=== PATIENT | female | born 1995 | race African-American/Black ===

== ENCOUNTER 2017-03-26 15:11 | Emergency (ER) | payer OTHER ==
[2017-03-26 15:26] VITALS: BP 121/76; PULSE 63; TEMP 98.9; BMI 26.6
--- NOTE | 2017-03-26 16:47 | PDOC ---
History of Present Illness - General History Source: Patient Exam Limitations: No Limitations - History of Present Illness Initial Comments: 03/26/17 17:03 The patient is a 21 year old female, with a significant past medical history of chronic back pain who presents to the emergency department with complaint of back pain for 1 month. Patient states that she has been having chronic back pain for 1 month that is managed by a pain management doctor Dr. Lamas. Patient states that she presents today because she ran out of her percocet prescription. She notes that she saw Dr. Lamas on the 03/07 and her next appointment is on 03/21 and she needs something to get by. Patient states that she is in pain, but is ambulating around the ED with a steady gait, in no distress. She denies chest pain and shortness of breath. She denies fever, chills, headache and dizziness. She denies nausea, vomit, diarrhea and constipation. She denies dysuria, frequency, urgency and hematuria. Denies urinary retention or incontinence. She denies any visual changes, lightheadedness or slurred speech. Denies LE weakness or sensory deficits. <Bessy Mcdowell - Last Filed: 03/26/17 17:03> <Dawit Briceño - Last Filed: 03/26/17 23:06> - General Stated Complaint: NAUSEA Time Seen by Provider: 03/26/17 15:19 Past History <Bessy Mcdowell - Last Filed: 03/26/17 17:03> - Past Medical History Asthma: No Cancer: No Cardiac Disorders: No Diabetes: No Disorders: Yes (UTIs) HTN: No Seizures: No Thyroid Disease: No - Reproductive History (#): 4 Para: 2 - Immunization History Immunization Up to Date: No - Psycho/Social/Smoking Cessation Hx Anxiety: No Suicidal Ideation: No Smoking History: Current every day smoker Have you smoked in the past 12 months: No Number of Cigarettes Smoked Daily: 5 If you are a former smoker, when did you quit?: 08/25 Information on smoking cessation initiated: Yes 'Breaking Loose' booklet given: 04/28/16 Hx Alcohol Use: No Drug/Substance Use Hx: No Substance Use Type: None Hx Substance Use Treatment: No <Dawit Briceño - Last Filed: 03/26/17 23:06> - Past Medical History Allergies/Adverse Reactions: Allergies Allergy/AdvReac Type Severity Reaction Status Date / Time No Known Allergies Allergy Verified 04/28/16 10:33 Home Medications: Ambulatory Orders Dicyclomine HCl [Bentyl] 10 mg PO BID PRN #30 capsule 04/28/16 Ranitidine HCl [Zantac] 150 mg PO DAILY #30 tablet 04/28/16 Review of Systems - Review of Systems Able to Perform ROS?: Yes Comments:: 03/26/17 17:03 GENERAL/CONSTITUTIONAL: No fever or chills. No weakness. HEAD, EYES, EARS, NOSE AND THROAT: No change in vision. No ear pain or discharge. No sore throat. GASTROINTESTINAL: No nausea, vomiting, diarrhea or constipation. GENITOURINARY: No dysuria, frequency, or change in urination. CARDIOVASCULAR: No chest pain or shortness of breath. RESPIRATORY: No cough, wheezing, or hemoptysis. MUSCULOSKELETAL:+chronic back pain. No joint or muscle swelling or pain. No neck pain. SKIN: No rash NEUROLOGIC: No headache, vertigo, loss of consciousness, or change in strength/ sensation. ENDOCRINE: No increased thirst. No abnormal weight change. HEMATOLOGIC/LYMPHATIC: No anemia, easy bleeding, or history of blood clots. ALLERGIC/IMMUNOLOGIC: No hives or skin allergy. <Bessy Mcdowell - Last Filed: 03/26/17 17:03> *Physical Exam - Vital Signs Last Vital Signs Temp Pulse Resp BP Pulse Ox 98.9 F 63 17 121/76 100 03/26/17 15:18 03/26/17 15:18 03/26/17 15:18 03/26/17 15:18 03/26/17 15:18 - Physical Exam Comments: 03/26/17 17:03 GENERAL: Awake, alert, and fully oriented, in no acute distress HEAD: No signs of trauma EYES: PERRLA, EOMI, sclera anicteric, conjunctiva clear ENT: Auricles normal inspection, hearing grossly normal, nares patent, oropharynx clear without exudates. Moist mucosa NECK: Normal ROM, supple, no lymphadenopathy, JVD, or masses LUNGS: Breath sounds equal, clear to auscultation bilaterally. No wheezes, and no crackles HEART: Regular rate and rhythm, normal S1 and S2, no murmurs, rubs or gallops ABDOMEN: Soft, nontender, normoactive bowel sounds. No guarding, no rebound. No masses EXTREMITIES: Normal range of motion, no edema. No clubbing or cyanosis. No cords, erythema, or tenderness NEUROLOGICAL: Cranial nerves II through XII grossly intact. Normal speech, normal gait SKIN: Warm, Dry, normal turgor, no rashes or lesions noted. <Bessy Mcdowell - Last Filed: 03/26/17 17:03> - Vital Signs Last Vital Signs Temp Pulse Resp BP Pulse Ox 98.9 F 63 17 121/76 100 03/26/17 15:18 03/26/17 15:18 03/26/17 15:18 03/26/17 15:18 03/26/17 15:18 <Dawit Briceño - Last Filed: 03/26/17 23:06> Medical Decision Making - Medical Decision Making 03/26/17 17:00 21yo F hx chronic LBP followed by pain management on daily percocet for pain control presents for back pain x1 month, requesting a percocet refill. Vitals and exam unremarkable, with no back pain red flags on exam. Denies urine retention and saddle anesthesia, exam with no midline ttp, 5/5 strength in LE, normal sensation in all extremities, normal reflexes. Pt is ambulating in the ED with a steady gait, and does not appear uncomfortable or in any distress. I offered the patient her home dose of percocet here in the ED for pain control but that since she is followed by pain management, I would not be able to refill her percocet prescription until she called her pain management physician first. I offered to speak with her pain management doctor but she was unable to remember the rest of his name, referred to him only as "Dr. Lamas." I asked for her pharmacy information but could not identify her pharmacy. Pt then reported that she would call Dr. Lamas as soon as she got home, and abruptly requested DC as she had to fruit picker machine operator her son. Pt reports she has a ride to pick her up from the ED to go fruit picker machine operator her son. I advised the patient to return to the emergency department immediately if she had any new, worsening, or concerning symptoms. <Dawit Briceño - Last Filed: 03/26/17 23:06> *DC/Admit/Observation/Transfer - Attestations Scribe Attestion: 03/26/17 16:56 Documentation prepared by LOREN Rivero, acting as center medical specialist for Dawit Briceño MD. <Bessy Mcdowell - Last Filed: 03/26/17 17:03> - Discharge Dispostion Admit: No - Attestations Physician Attestion: 03/26/17 19:15 I, Dr. Dawit Briceño MD, attest that this document has been prepared under my direction and personally reviewed by me in its entirety. I further attest, that it accurately reflects all work, treatment, procedures and medical decision -making performed by me. <Dawit Briceño - Last Filed: 03/26/17 23:06> Diagnosis at time of Disposition: Low back pain - Discharge Dispostion Disposition: HOME Condition at time of disposition: Good - Referrals Referrals: Deon Rose MD [Primary Care Provider] - - Patient Instructions Printed Discharge Instructions: Managing Chronic Low Back Pain Additional Instructions: Please call your pain management doctor today for a follow up appointment for your pain within 1-3 days. Return to the emergency department for any new, worsening, or concerning symptoms.
== END 2017-03-26 17:09 | disposition home or self-care (01) ==
LOC: JER 15:11
DX: M54.5 Low back pain (principal)
CPT/HCPCS: 99282-25

== ENCOUNTER 2018-05-23 10:36 | Inpatient (IN) | payer OTHER ==
[2018-05-23 11:26] VITALS: BMI 31.4
--- NOTE | 2018-05-23 13:43 | HP ---
COWS - Scale Resting Pulse: 0= [place] 80 or Below Sweatin= Chills/Flushing Restless Observation: 1= Difficult to Sit Still Pupil Size: 1= Pupils >than Normal Bone or Joint Aches: 2= Severe Diffuse Aches Runny Nose/ Eye Tearin= Runny Nose/Eyes GI Upset > 30mins: 2= Nausea/Diarrhea Tremor Observation: 2= Slight Tremor Visible Yawning Observation: 2= >3x During Session Anxiety or Irritability: 2=Irritable/Anxious Goose Flesh Skin: 0=Smooth Skin COWS Score: 15 CIWA Score - Admission Criteria [facility] Guidelines: Admission for Medically Managed Detox: Requires at least one of the followin. CIWA greater than 12 2. Seizures within the past 24 hours 3. Delirium tremens within the past 24 hours 4. Hallucinations within the past 24 hours 5. Acute intervention needed for co occurring medical disorder 6. Acute intervention needed for co occurring psychiatric disorder 7. Severe withdrawal that cannot be handled at a lower level of care (continued vomiting, continued diarrhea, abnormal vital signs) requiring intravenous medication and/or fluids 8. Admission ROS [facility] Chief Complaint: i need help to stop using percocet Allergies/Adverse Reactions: Allergies Allergy/AdvReac Type Severity Reaction Status Date / Time No Known Allergies Allergy Verified 05/23/18 12:21 History of Present Illness: this 22 years old female with percocet dependence,seeking detox,withdrawal symptom,never been in detox before nicotine dependence anxiety ,depression last medication insomnia Exam Limitations: No Limitations - Ebola screening Have you traveled outside of the country in the last 21 days: No Have you had contact with anyone from an Ebola affected area: No Have you been sick,other than usual withdrawal symptoms: No Do you have a fever: No - Review of Systems Constitutional: Chills, Loss of Appetite, Malaise, Night Sweats, Changes in sleep, Weakness EENT: reports: Tearing, Nose Congestion Respiratory: reports: No Symptoms reported Cardiac: reports: No Symptoms Reported GI: reports: Diarrhea, Nausea, Poor Fluid Intake, Vomiting : reports: No Symptoms Reported Musculoskeletal: reports: Back Pain, Joint Pain, Muscle Pain, Joint Stiffness Integumentary: reports: Dryness Neuro: reports: Headache, Tremors Endocrine: reports: No Symptoms Reported Hematology: reports: No Symptoms Reported Psychiatric: reports: No Sypmtoms Reported, Judgement Intact, Mood/Affect Appropiate, Orientated x3, Anxious, Depressed (insomnia) Patient History - Patient Medical History Hx Anemia: No Hx Asthma: No Hx Cancer: No Hx Cardiac Disorders: No Hx Congestive Heart Failure: No Hx Hypertension: No Hx Hypercholesterolemia: No Hx Pacemaker: No HX Cerebrovascular Accident: No Hx Seizures: No Hx Dementia: No Hx Diabetes: No Hx Gastrointestinal Disorders: No Hx Liver Disease: No Hx Genitourinary Disorders: Yes (UTIs) Hx Sexually Transmitted Disorders: No Hx Renal Disease (ESRD): No Hx Thyroid Disease: No Hx Human Immunodeficiency Virus (HIV): No (last 03/29 negative) Hx Hepatitis C: No Hx Depression: Yes (no med now last 3 months ago) Hx Suicide Attempt: No Hx Bipolar Disorder: No Hx Schizophrenia: No Other Medical History: anxiety,insomnia,no suicidal,no homicidal - Patient Surgical History Past Surgical History: No - PPD History Previous Implant?: Yes Documented Results: Negative w/o proof Implanted On Prior R Admission?: No PPD to be Administered?: Yes - Reproductive History Patient is a Female of Child Bearing Age (11 -55 yrs old): Yes Last Menstrual Period: 04/18/18 Patient : No - Smoking Cessation Smoking history: Current every day smoker Have you smoked in the past 12 months: No Aproximately how many cigarettes per day: 20 Hx Chewing Tobacco Use: No Initiated information on smoking cessation: Yes 'Breaking Loose' booklet given: 05/23/18 - Substance & Tx. History Hx Alcohol Use: No Hx Substance Use: Yes Substance Use Type: Opiates Hx Substance Use Treatment: No - Substances Abused PERCOCET Route: Oral Frequency: Daily Amount used: 6-7 (10MG) PILLS Age of first use: 20 Date of Last Use: 05/22/18 Family Disease History - Family Disease History Family Disease History: Other: Father (no contact), Mother Admission Physical Exam S - Vital Signs Vital Signs: Vital Signs - 24 hr 05/23/18 11:23 Temperature 99.5 F Pulse Rate 61 Respiratory 18 Rate Blood Pressure 127/75 - Physical General Appearance: Yes: Moderate Distress, Tremorous, Irritable, Anxious HEENTM: Yes: Hearing grossly Normal, YANELY, Pharynx Normal, Nasal Congestion ( nose ring), Other Respiratory: Yes: Lungs Clear, Normal Breath Sounds, No Respiratory Distress Neck: Yes: Within Normal Limits, Supple, Trachea in good position Breast: Yes: Breast Exam Deferred Cardiology: Yes: Within Normal Limits, Regular Rhythm, Regular Rate, S1, S2 Abdominal: Yes: Within Normal Limits, Normal Bowel Sounds, Non Tender, Flat, Soft Genitourinary: Yes: Within Normal Limits Back: Yes: Muscle Spasm Musculoskeletal: Yes: Back pain, Muscle Pain Extremities: Yes: Tremors Neurological: Yes: customer acquisition manager II-XII NML intact, Fully Oriented, Alert, Motor Strength 5/5 Integumentary: Yes: Dry Lymphatic: Yes: Within Normal Limits - Diagnostic (1) Opioid dependence with withdrawal Current Visit: Yes Status: Acute (2) Insomnia secondary to depression with anxiety Current Visit: Yes Status: Acute (3) Nicotine dependence Current Visit: Yes Status: Acute Cleared for Admission [facility] - Detox or Rehab [facility] Level of Care: Medically Managed Detox Regimen/Protocol: Methadone [facility] Breath Alcohol Content Breath Alcohol Content: 0 Urine Pregancy Test - Result Urine Test Results: Negative- NO Line Present Urine Drug Screen - Results Drug Screen Negative: No Urine Drug Screen Results: OPI-Opiates, BAR-Barbiturates, BZO-Benzodiazepines, OXY-Oxycodone
[2018-05-23] MEDS ORDERED: LOPERAMIDE HCL 2 MG CAPSULE PO PRN (13:56)
[2018-05-23] MEDS ORDERED: NICOTINE POLACRILEX 2 MG GUM BUC PRN (13:56)
[2018-05-23] MEDS ORDERED: MENTHOL/PHENOL 1 EACH UD MM PRN (13:56)
[2018-05-23] MEDS ORDERED: IBUPROFEN 400 MG TABLET (FP) PO PRN (13:56)
[2018-05-23] MEDS ORDERED: ACETAMINOPHEN 325 MG TABLET (FP) PO PRN (13:56)
[2018-05-23] MEDS ORDERED: P-EPHED 60MG/TRIPROLIDI 2.5MG TABLET PO PRN (13:56)
[2018-05-23] MEDS ORDERED: MAGNESIUM HYDROX 2400MG/30ML ORAL SUSPENSION 30 ML CUP PO PRN (13:56)
[2018-05-23] MEDS ORDERED: MAGNESIUM CITRATE 300 ML BOTTLE PO PRN (13:56)
[2018-05-23] MEDS ORDERED: guaiFENesin/D-METHORPHAN HB 10 ML UNIT-DOSE CUPS PO PRN (13:56)
[2018-05-23] MEDS ORDERED: METHADONE HCL 10 MG TABLET (FOR DETOX USE ONLY) PO ONE ×2 (14:30→23:00)
--- NOTE | 2018-05-23 14:35 | CONSULT ---
[facility] Psychiatric Consult - Data Date of interview: 05/23/18 Admission source: [facility] Identifying data: This is a 22 years old female, single, mother of two, living with family, unemployed, with psychiatric hospitalization history, with percocet and nicotine dependence,seeking detox reporting withdrawal symptoms , never been in detox before. Patient denies suicidal, homicidal history. Substance Abuse History: Smoking history: Current every day smoker. Have you smoked in the past 12 months: No. Aproximately how many cigarettes per day: 20. Hx Chewing Tobacco Use: No. Initiated information on smoking cessation: Yes. 'Breaking Loose' booklet given: 05/23/18. - Substance & Tx. History. Hx Alcohol Use: No. Hx Substance Use: Yes. Substance Use Type: Opiates. Hx Substance Use Treatment: No. - Substances Abused. PERCOCET. Route: Oral. Frequency: Daily. Amount used: 6-7 (10MG) PILLS. Age of first use: 20. Date of Last Use: 05/22/18 Medical History: Denies any significant medical issues Psychiatric History: Patient reportsm history of anxiety, agitation. reports unclear psychiatric admission at childhood, reportsm taking prior to admission: Seroquel 100mg po qhs. Buspar 30mg p[o bid Physical/Sexual Abuse/Trauma History: Denies, unclear Additional Comment: Seroquel 100mg po qhs. Buspar 30mg p[o bid Mental Status Exam - Mental Status Exam Alert and Oriented to: Place, Person Cognitive Function: Fair Patient Appearance: Well Groomed Mood: Suspicious, Anxious, Irritable Affect: Constricted, Labile Patient Behavior: Guarded, Impulsive, Talkative Speech Pattern: Appropriate Voice Loudness: Normal Thought Process: Circumstantial, Goal Oriented Thought Disorder: Being Controlled Hallucinations: Denies Suicidal Ideation: Denies Homicidal Ideation: Denies Insight/Judgement: Fair Sleep: Difficulty falling asleep Appetite: Weight gain Muscle strength/Tone: Normal Gait/Station: Normal Additional Comments: Seroquel 100mg po qhs. Buspar 30mg p[o bid Psychiatric Findings - Problem List ([place] 1, 2,3) (1) Insomnia secondary to depression with anxiety Current Visit: Yes Status: Acute (2) Nicotine dependence Current Visit: Yes Status: Acute (3) Opioid dependence with withdrawal Current Visit: Yes Status: Acute - Initial Treatment Plan Initial Treatment Plan: Observation. Detox Unit Care Protocol. Busoar 30mg po bid. Seroquel 100mg po qhs
[2018-05-23] MEDS: diazePAM 5 MG TABLET PO PRN ×2 (14:47→18:50)
[2018-05-23] MEDS: NICOTINE 21 MG/24 HOURS TOPICAL PATCH TD SCH (14:59)
[2018-05-23 17:23] LABS: URINE APPEARANCE CLEAR; URINE BILIRUBIN NEGATIVE (<2.0 mg/dL); URINE COLOR YELLOW; URINE GLUCOSE (UA) NEGATIVE (NEGATIVE); URINE KETONE TRACE (NEGATIVE); URINE LEUK ESTERASE NEGATIVE (NEGATIVE); URINE NITRITE NEGATIVE (NEGATIVE); URINE PROTEIN NEGATIVE (NEGATIVE)
[2018-05-23] MEDS: MAG HYDROX/AL HYDROX/SIMETH 30 ML UNIT-DOSE CUP PO PRN (17:26)
[2018-05-23] MEDS: hydrOXYzine PAMOATE 50 MG CAPSULE (FP) PO PRN (17:34)
[2018-05-23] MEDS: THIAMINE HCL 100 MG TABLET (FP) PO SCH (22:25)
[2018-05-23] MEDS: QUEtiapine FUMARATE 100 MG TABLET (FP) PO SCH (22:25)
[2018-05-24] MEDS: diazePAM 5 MG TABLET PO PRN ×4 (06:51→22:18)
[2018-05-24 09:46] LABS: ALBUMIN 4.2 g/dl (3.4-5.0); ALK PHOS 61 U/L (45-117); ANION GAP 6 MMOL/L (8-16); BILIRUBIN,TOTAL 0.5 mg/dL (0.2-1); BLOOD UREA NITROGEN 13 mg/dL (7-18); CALCIUM 9.2 mg/dL (8.5-10.1); CHLORIDE 105 mmol/L (98-107); CO2 27 mmol/L (21-32); CREATININE 0.8 mg/dL (0.55-1.3); GLUCOSE,RANDOM 88 mg/dL (74-106); POTASSIUM 4.9 mmol/L (3.5-5.1); SGOT/AST 17 U/L (15-37); SGPT/ALT 17 U/L (13-61); SODIUM 138 mmol/L (136-145); TOT PROT 7.9 g/dl (6.4-8.2)
[2018-05-24 09:57] LABS: HEMATOCRIT 41.9 % (32.4-45.2); HEMOGLOBIN 13.7 GM/dL (10.7-15.3); MCH 29.9 pg (25.7-33.7); MCHC 32.7 g/dl (32.0-36.0); MEAN CELL VOLUME 91.5 fl (80-96); MEAN PLT VOLUME 10.1 fl (7.5-11.1); PLATELET COUNT 226 K/MM3 (134-434); RBC 4.58 M/mm3 (3.60-5.2); RDW 17.7 % (11.6-15.6); WHITE BLOOD COUNT 8.7 K/mm3 (4.0-10.0)
[2018-05-24] MEDS ORDERED: METHADONE HCL 10 MG TABLET (FOR DETOX USE ONLY) PO ONE (10:00)
--- NOTE | 2018-05-24 10:01 | PN ---
BHS COWS - Scale Resting Pulse: 1= [place] 81-100 Sweatin=Flushed/Facial Moisture Restless Observation: 1= Difficult to Sit Still Pupil Size: 0= Normal to Room Light Bone or Joint Aches: 2= Severe Diffuse Aches Runny Nose/ Eye Tearin= Runny Nose/Eyes GI Upset > 30mins: 0= None Tremor Observation of Outstretched Hands: 2= Slight Tremor Visible Yawning Observation: 2= >3x During Session Anxiety or Irritability: 2=Irritable/Anxious Goose Flesh Skin: 3=Piloerection COWS Score: 17 BHS Progress Note (SOAP) Subjective: shakes sweats interrupted sleep agitation anxiety body aches restless Objective: 05/24/18 10:00 Vital Signs Temperature 99 F 05/24/18 09:42 Pulse Rate 100 H 05/24/18 09:42 Respiratory Rate 18 05/24/18 09:42 Blood Pressure 122/68 05/24/18 09:42 O2 Sat by Pulse Oximetry (%) Laboratory Tests 05/23/18 05/24/18 05/24/18 15:46 05:55 05:55 WBC 8.7 RBC 4.58 Hgb 13.7 Hct 41.9 MCV 91.5 MCH 29.9 MCHC 32.7 RDW 17.7 H Plt Count 226 D MPV 10.1 Sodium 138 Potassium 4.9 Chloride 105 Carbon Dioxide 27 Anion Gap 6 L BUN 13 Creatinine 0.8 Creat Clearance w eGFR > 60 Random Glucose 88 Calcium 9.2 Total Bilirubin 0.5 AST 17 ALT 17 Alkaline Phosphatase 61 Total Protein 7.9 Albumin 4.2 Urine Color Yellow Urine Appearance Clear Urine pH 5.0 Ur Specific [place] 1.046 H Urine Protein Negative Urine Glucose (UA) Negative Urine Ketones Trace H Urine Blood Negative Urine Nitrite Negative Urine Bilirubin Negative Urine Urobilinogen 2.0 H Ur Leukocyte Esterase Negative aaox3 ambulating no acute distress Assessment: 05/24/18 10:01 withdrawal sx Plan: continue detox increase fluids
[2018-05-24] MEDS: PRENATAL VITAMINS W/ FOLIC ACID TABLET (FP) PO SCH (10:31)
[2018-05-24] MEDS: NICOTINE 21 MG/24 HOURS TOPICAL PATCH TD SCH (10:31)
--- NOTE | 2018-05-24 16:16 | EKG ---
Test Reason : Blood Pressure : / mmHG Vent. Rate : 051 BPM Atrial Rate : 051 BPM P-R Int : 150 ms QRS Dur : 086 ms QT Int : 414 ms P-R-T Axes : 033 042 016 degrees QTc Int : 381 ms SINUS BRADYCARDIA OTHERWISE NORMAL ECG WHEN COMPARED WITH ECG OF 06-MAY-2014 17:54, NO SIGNIFICANT CHANGE WAS FOUND Confirmed by MD Douglass Edward ([id number]) on 05/24/2018 4:16:24 PM Referred By: Confirmed By:Michel Douglass MD
[2018-05-24] MEDS: QUEtiapine FUMARATE 100 MG TABLET (FP) PO SCH (22:17)
[2018-05-24] MEDS: MELATONIN 5 MG TABLETS PO PRN (22:18)
[2018-05-24] MEDS: THIAMINE HCL 100 MG TABLET (FP) PO SCH (22:18)
[2018-05-25] MEDS: MAG HYDROX/AL HYDROX/SIMETH 30 ML UNIT-DOSE CUP PO PRN ×2 (09:18→15:46)
[2018-05-25] MEDS ORDERED: COLLOIDAL OATMEAL 1 BAR EACH TP PRN (09:29)
[2018-05-25] MEDS ORDERED: METHADONE HCL 5 MG TABLET (FOR DETOX USE ONLY) PO ONE (10:00)
[2018-05-25] MEDS: PRENATAL VITAMINS W/ FOLIC ACID TABLET (FP) PO SCH (10:05)
[2018-05-25] MEDS: diazePAM 5 MG TABLET PO PRN ×3 (10:05→22:15)
[2018-05-25] MEDS: NICOTINE 21 MG/24 HOURS TOPICAL PATCH TD SCH (10:06)
--- NOTE | 2018-05-25 12:00 | PN ---
BHS COWS - Scale Resting Pulse: 0= [place] 80 or Below Sweatin=Flushed/Facial Moisture Restless Observation: 1= Difficult to Sit Still Pupil Size: 0= Normal to Room Light Bone or Joint Aches: 1= Mild Discomfort Runny Nose/ Eye Tearin= Nasal Congestion GI Upset > 30mins: 1= Stomach Cramp Tremor Observation of Outstretched Hands: 2= Slight Tremor Visible Yawning Observation: 2= >3x During Session Anxiety or Irritability: 2=Irritable/Anxious Goose Flesh Skin: 3=Piloerection COWS Score: 15 BHS Progress Note (SOAP) Subjective: irritable agitation anxiety body aches sweats dry skin Objective: 05/25/18 12:00 Vital Signs Temperature 98.2 F 05/25/18 10:04 Pulse Rate 71 05/25/18 10:04 Respiratory Rate 18 05/25/18 10:04 Blood Pressure 118/59 L 05/25/18 10:04 O2 Sat by Pulse Oximetry (%) Laboratory Tests 05/23/18 05/24/18 05/24/18 15:46 05:55 05:55 WBC 8.7 RBC 4.58 Hgb 13.7 Hct 41.9 MCV 91.5 MCH 29.9 MCHC 32.7 RDW 17.7 H Plt Count 226 D MPV 10.1 Sodium 138 Potassium 4.9 Chloride 105 Carbon Dioxide 27 Anion Gap 6 L BUN 13 Creatinine 0.8 Creat Clearance w eGFR > 60 Random Glucose 88 Calcium 9.2 Total Bilirubin 0.5 AST 17 ALT 17 Alkaline Phosphatase 61 Total Protein 7.9 Albumin 4.2 Urine Color Yellow Urine Appearance Clear Urine pH 5.0 Ur Specific [place] 1.046 H Urine Protein Negative Urine Glucose (UA) Negative Urine Ketones Trace H Urine Blood Negative Urine Nitrite Negative Urine Bilirubin Negative Urine Urobilinogen 2.0 H Ur Leukocyte Esterase Negative RPR Titer 05/24/18 05:55 WBC RBC Hgb Hct MCV MCH MCHC RDW Plt Count MPV Sodium Potassium Chloride Carbon Dioxide Anion Gap BUN Creatinine Creat Clearance w eGFR Random Glucose Calcium Total Bilirubin AST ALT Alkaline Phosphatase Total Protein Albumin Urine Color Urine Appearance Urine pH Ur Specific [place] Urine Protein Urine Glucose (UA) Urine Ketones Urine Blood Urine Nitrite Urine Bilirubin Urine Urobilinogen Ur Leukocyte Esterase RPR Titer Nonreactive aaox3 ambulating no acute distress Assessment: 05/25/18 12:01 withdrawal sx Plan: continue detox increase fluids aveeno soap ordered
[2018-05-25] MEDS: MELATONIN 5 MG TABLETS PO PRN (22:15)
[2018-05-25] MEDS: THIAMINE HCL 100 MG TABLET (FP) PO SCH (22:15)
[2018-05-25] MEDS: QUEtiapine FUMARATE 100 MG TABLET (FP) PO SCH (22:15)
[2018-05-25] MEDS: hydrOXYzine PAMOATE 50 MG CAPSULE (FP) PO PRN (22:16)
[2018-05-26] MEDS: MAG HYDROX/AL HYDROX/SIMETH 30 ML UNIT-DOSE CUP PO PRN ×2 (09:13→22:08)
[2018-05-26] MEDS ORDERED: METHADONE HCL 5 MG TABLET (FOR DETOX USE ONLY) PO ONE (10:00)
[2018-05-26] MEDS: PRENATAL VITAMINS W/ FOLIC ACID TABLET (FP) PO SCH (10:32)
[2018-05-26] MEDS: diazePAM 5 MG TABLET PO PRN (10:32)
[2018-05-26] MEDS: NICOTINE 21 MG/24 HOURS TOPICAL PATCH TD SCH (10:34)
--- NOTE | 2018-05-26 11:00 | PN ---
S Progress Note Note: pt refused to continue with detox. pt states she is going home, pt signed out AMA.
[2018-05-26] MEDS: CLOTRIMAZOLE 10 MG TROCHE (FP) PO SCH ×4 (11:19→22:06)
--- NOTE | 2018-05-26 11:55 | PN ---
BHS Progress Note (SOAP) Subjective: agitation irritable Objective: 05/26/18 11:55 Vital Signs Temperature 97.7 F 05/26/18 09:36 Pulse Rate 89 05/26/18 09:36 Respiratory Rate 18 05/26/18 09:36 Blood Pressure 132/94 05/26/18 09:36 O2 Sat by Pulse Oximetry (%) aaox3 ambulating no acute distress Assessment: 05/26/18 11:55 mild withdrawal Plan: continue detox increase fluids
[2018-05-26] MEDS: hydrOXYzine PAMOATE 50 MG CAPSULE (FP) PO PRN ×2 (18:18→22:06)
[2018-05-26] MEDS: THIAMINE HCL 100 MG TABLET (FP) PO SCH (22:06)
[2018-05-26] MEDS: QUEtiapine FUMARATE 100 MG TABLET (FP) PO SCH (22:06)
[2018-05-26] MEDS: MELATONIN 5 MG TABLETS PO PRN (22:06)
[2018-05-27] MEDS: CLOTRIMAZOLE 10 MG TROCHE (FP) PO SCH ×2 (06:08→10:09)
[2018-05-27] MEDS: hydrOXYzine PAMOATE 50 MG CAPSULE (FP) PO PRN (06:10)
[2018-05-27 09:39] VITALS: BP 125/77; PULSE 94; TEMP 98.2
--- NOTE | 2018-05-27 09:56 | DS ---
[facility] Detox Discharge Summary Admission Date: 05/23/18 Discharge Date: 05/27/18 - History Present History: Opioid Dependence - Physical Exam Results Vital Signs: Vital Signs Temperature 98.2 F 05/27/18 09:38 Pulse Rate 94 H 05/27/18 09:38 Respiratory Rate 16 05/27/18 09:38 Blood Pressure 125/77 05/27/18 09:38 O2 Sat by Pulse Oximetry (%) - Treatment Hospital Course: Detox Protocol Followed, Detoxed Safely, Responded well, Discharged Condition Good, Rehab Referral Accepted - Medication Discharge Medications: Ambulatory Orders Buspirone HCl [Buspar -] 30 mg PO BID@1000,1300 #60 tablet 05/26/18 Quetiapine Fumarate [Seroquel] 100 mg PO HS #30 tablet 05/26/18 - Diagnosis (1) Insomnia secondary to depression with anxiety Current Visit: Yes Status: Chronic (2) Nicotine dependence Current Visit: Yes Status: Chronic Qualifiers: Nicotine product type: cigarettes Substance use status: uncomplicated Qualified Code(s): F17.210 - Nicotine dependence, cigarettes, uncomplicated (3) Opioid dependence with withdrawal Current Visit: Yes Status: Chronic - AMA Did Patient Leave Against Medical Advice: No (going home referred to outpatient)
[2018-05-27] MEDS ORDERED: METHADONE HCL 10 MG TABLET (FOR DETOX USE ONLY) PO ONE (10:00)
[2018-05-27] MEDS: PRENATAL VITAMINS W/ FOLIC ACID TABLET (FP) PO SCH (10:08)
[2018-05-27] MEDS: NICOTINE 21 MG/24 HOURS TOPICAL PATCH TD SCH (10:09)
[2018-05-28] MEDS ORDERED: METHADONE HCL 5 MG TABLET (FOR DETOX USE ONLY) PO ONE (06:00)
== END 2018-05-27 10:45 | disposition home or self-care (01) | DRG 773 ==
LOC: YASAS 10:36 → Y6N 13:45
PROC: HZ2ZZZZ Detoxification Services for Substance Abuse Treatment (ICD-10-PCS; principal; 2018-05-23)
DX: F11.23 Opioid dependence with withdrawal (principal); F17.210 Nicotine dependence, cigarettes, uncomplicated; F51.05 Insomnia due to other mental disorder
CPT/HCPCS: 36415; 80053; 81003; 85027; 86593; 93005; 93010

== ENCOUNTER 2018-08-13 23:22 | Emergency (ER) | payer OTHER ==
[2018-08-13 23:32] VITALS: BMI 31.4
--- NOTE | 2018-08-13 23:57 | PDOC ---
Attending Attestation - Resident Resident Name: Sidney Eckert - ED Attending Attestation I have performed the following: I have examined & evaluated the patient, The case was reviewed & discussed with the resident, I agree w/resident's findings & plan, Exceptions are as noted - HPI HPI: 08/14/18 00:09 22 yo F h/o chronic back pain (treated with Oxycodone) presenting with 1 week of epigastric pain radiating to the back, constant, no exacerbating or alleviating factors, described as sharp. Nausea, no vomting, (+) diarrhea (non bloody) No prior episodes like this No recent travel No ill contacts 08/14/18 00:33 - Physicial Exam PE: 08/14/18 00:10 GENERAL: The patient is in no acute distress. HEAD: Normal EYES: PERRLA, EOMI, sclera anicteric, conjunctiva clear. ENT: Ears normal, nares patent, oropharynx clear without exudates. Moist mucous membranes. NECK: Normal range of motion, supple without lymphadenopathy, JVD, or masses. LUNGS: Breath sounds equal, clear to auscultation bilaterally. No wheezes, and no crackles. HEART:Regular rate and rhythm, normal S1 and S2 without murmur, rub or gallop. ABDOMEN: Soft, epigastric tenderness to palpation, No guarding, no rebound. EXTREMITIES: Normal range of motion, no edema. No erythema, or tenderness. NEUROLOGICAL: Cranial nerves II through XII grossly intact. Normal speech. No focal neurological deficits. MUSCULOSKELETAL: Back non-tender to palpation SKIN: excoriated lesions over abdomen 08/14/18 00:33 - Medical Decision Making 08/14/18 00:33 22 yo F presenting with epigastric pain DD: GERD, Ulcer, Pancreatitis, Cholecystitis Will do: Labs US IVF, Protonix, Re assess 08/14/18 01:03 Laboratory Tests 08/14/18 08/14/18 00:25 00:25 WBC 11.9 H Hgb 12.8 Hct 37.4 Plt Count 204 Urine Blood Negative Urine Nitrite Negative Ur Leukocyte Esterase Negative Urine WBC (Auto) 8 Urine RBC (Auto) 2 EKG - sinus bradycardia, rate of 53 bpm, axis nml, intervals nml, no st elevation or depressions t wave inversion III/t wave flattening aVF 08/14/18 02:18 US negative for gallstones UA equivocal for UTI (moderate epithelial cells) Will wait for urine culture Pt asked to return to the ER for any other concerns or complaints Follow up with PMD
--- NOTE | 2018-08-14 00:01 | PDOC ---
History of Present Illness - General Chief Complaint: Pain Stated Complaint: STOMACHE PAIN Time Seen by Provider: 08/13/18 23:57 - History of Present Illness Initial Comments: The patient is a 22F w/ a history of chronic back pain who presents w/ 1wk of epigastric pain that radiates to her back described as sharp, constant, sometimes radiating to her chest, and has not been helped by her muscle relaxers or Ibuprofen. She endorses associated NB diarrhea. Denies vomiting, SOB , or pale stool. She has not had pain like this before. She states she was seen at [facility] just prior to arrival but her pain was has not improved. 08/14/18 00:09 Past History - Past Medical History Allergies/Adverse Reactions: Allergies Allergy/AdvReac Type Severity Reaction Status Date / Time No Known Allergies Allergy Verified 05/23/18 12:21 Home Medications: Ambulatory Orders Buspirone HCl [Buspar -] 30 mg PO BID@1000,1300 #60 tablet 05/26/18 Quetiapine Fumarate [Seroquel] 100 mg PO HS #30 tablet 05/26/18 Anemia: No Asthma: No Cancer: No Cardiac Disorders: No CVA: No COPD: No CHF: No Dementia: No Diabetes: No GI Disorders: No Disorders: Yes (UTIs) HTN: No Hypercholesterolemia: No Liver Disease: No Seizures: No Thyroid Disease: No - Reproductive History (#): 4 Para: 2 - Immunization History Immunization Up to Date: No - Suicide/Smoking/Psychosocial Hx Smoking History: Never smoked Have you smoked in the past 12 months: No Number of Cigarettes Smoked Daily: 20 If you are a former smoker, when did you quit?: 08/25 'Breaking Loose' booklet given: 05/23/18 Hx Alcohol Use: No Drug/Substance Use Hx: No Substance Use Type: Opiates Hx Substance Use Treatment: No Review of Systems - Review of Systems Able to Perform ROS?: Yes Comments:: GENERAL/CONSTITUTIONAL: No fever or chills. No weakness HEAD, EYES, EARS, NOSE AND THROAT: No change in vision. No ear pain or discharge. No sore throat CARDIOVASCULAR: No chest pain or shortness of breath RESPIRATORY: Denies cough, hemoptysis GASTROINTESTINAL: per HPI GENITOURINARY: No dysuria, frequency, or change in urination MUSCULOSKELETAL: No joint or muscle swelling or pain. +chronic back pain SKIN: +epigastric rash NEUROLOGIC: No headache, vertigo, loss of consciousness, or change in strength/ sensation ENDOCRINE: No increased thirst. No abnormal weight change HEMATOLOGIC/LYMPHATIC: No anemia, easy bleeding, or history of blood clots ALLERGIC/IMMUNOLOGIC: No hives or skin allergy 08/14/18 00:01 Is the patient limited Portuguese proficient: No *Physical Exam - Vital Signs Last Vital Signs Temp Pulse Resp BP Pulse Ox 98.7 F 67 20 140/75 100 08/13/18 23:30 08/13/18 23:30 08/13/18 23:30 08/13/18 23:30 08/13/18 23:30 - Physical Exam Comments: GENERAL: Awake, alert, and fully oriented, becomes tearful when I entered HEAD: No signs of trauma, normocephalic, atraumatic EYES: PERRLA, EOMI, sclera anicteric, conjunctiva clear ENT: Hearing grossly normal, nares patent, oropharynx clear without exudates. Moist mucosa LUNGS: No distress, speaks full sentences, clear to auscultation bilaterally HEART: Regular rate and rhythm, normal S1 and S2, no murmurs appreciated, peripheral pulses normal and equal bilaterally ABDOMEN: Soft, diffuse TTP, normoactive bowel sounds. No guarding, no rebound. EXTREMITIES : Normal inspection, Normal range of motion, no edema. No clubbing or cyanosis NEUROLOGICAL: Cranial nerves II through XII grossly intact. Normal speech, no focal sensorimotor deficits SKIN: excoriations over upper abdomen 08/14/18 00:01 Moderate Sedation - Procedure Monitoring Vital Signs: Procedure Monitoring Vital Signs Temperature 98.7 F 08/13/18 23:30 Pulse Rate 67 08/13/18 23:30 Respiratory Rate 20 08/13/18 23:30 Blood Pressure 140/75 08/13/18 23:30 O2 Sat by Pulse Oximetry (%) 100 08/13/18 23:30 ED Treatment Course - LABORATORY CBC & Chemistry Diagram: 08/14/18 00:25 08/14/18 00:25 Medical Decision Making - Medical Decision Making The pt is a 22F w/ a history of chronic back pain who presents for evaluation of 1 wk of epigastric abdominal pain that radiates to her back ddx: cholelithiasis/cholecystitis, pancreatitis, PUD, gastritis ED Course CMP, CBC, lipase, UA, UCx RUQ US 08/14/18 00:49 Mild leukocytosis to 11.9, pt afebrile and not tachy No anemia 08/14/18 01:07 UA w/o evidence of UTI 08/14/18 01:09 Lytes wnl No JULIO LFTs wnl Lipase wnl 08/14/18 01:09 US w/ boarderline hepatomegaly 08/14/18 01:54 *DC/Admit/Observation/Transfer Diagnosis at time of Disposition: Abdominal pain Qualifiers: Abdominal location: generalized Qualified Code(s): R10.84 - Generalized abdominal pain - Discharge Dispostion Disposition: HOME Condition at time of disposition: Stable Decision to Admit order: No - Referrals Referrals: Deon Rose MD [Primary Care Provider] - - Patient Instructions Printed Discharge Instructions: DI for Abdominal Pain-Adult Additional Instructions: You were seen in the Emergency Department for abdominal pain. Your ultrasound was significant for boarderline enlarged liver. Review the handout provided at discharge. Follow up with your primary care doctor this week. Return to the Emergency Department if you develop fevers/chills, liquid intolerance, blood in your stool, vomiting, or any new/concerning symptoms. - Post Discharge Activity
[2018-08-14] MEDS ORDERED: LIDOCAINE VISCOUS 2% ORAL/TOP 20 ML UNIT-DOSE CUP MM ONE (00:08)
[2018-08-14] MEDS ORDERED: MAG HYDROX/AL HYDROX/SIMETH 30 ML UNIT-DOSE CUP PO ONE (00:08)
[2018-08-14] MEDS ORDERED: RANITIDINE HCL 150 MG/10 ML UNIT-DOSE PO ONE (00:08)
[2018-08-14] MEDS ORDERED: ACETAMINOPHEN 325 MG TABLET (FP) PO ONE (00:08)
[2018-08-14 00:41] LABS: URINE APPEARANCE SLCLOUDY; URINE BILIRUBIN NEGATIVE (<2.0 mg/dL); URINE COLOR YELLOW; URINE GLUCOSE (UA) NEGATIVE (NEGATIVE); URINE KETONE NEGATIVE (NEGATIVE); URINE LEUK ESTERASE NEGATIVE (NEGATIVE); URINE NITRITE NEGATIVE (NEGATIVE); URINE PROTEIN 1+ (NEGATIVE)
[2018-08-14 00:44] LABS: BASO % 0.5 % (0-2.0); EOS % 2.5 % (0-4.5); HEMATOCRIT 37.4 % (32.4-45.2); HEMOGLOBIN 12.8 GM/dL (10.7-15.3); LYMPH % 18.8 % (8-40); MCH 33.9 pg (25.7-33.7); MCHC 34.3 g/dl (32.0-36.0); MEAN CELL VOLUME 98.8 fl (80-96); MEAN PLT VOLUME 9.9 fl (7.5-11.1); MONO % 4.5 % (3.8-10.2); NEUT % 73.7 % (42.8-82.8); PLATELET COUNT 204 K/MM3 (134-434); RBC 3.78 M/mm3 (3.60-5.2); RDW 15.3 % (11.6-15.6); WHITE BLOOD COUNT 11.9 K/mm3 (4.0-10.0)
[2018-08-14] MEDS ORDERED: ACETAMINOPHEN 325 MG TABLET (FP) ONE (00:45)
[2018-08-14] MEDS ORDERED: LIDOCAINE VISCOUS 2% ORAL/TOP 20 ML UNIT-DOSE CUP ONE (00:45)
[2018-08-14] MEDS ORDERED: RANITIDINE HCL 150 MG TABLET (FP) ONE (00:45)
[2018-08-14] MEDS ORDERED: MAG HYDROX/AL HYDROX/SIMETH 30 ML UNIT-DOSE CUP ONE (00:46)
[2018-08-14 00:47] LABS: EPI CELLS MODERATE /HPF (FEW); URINE BACTERIA FEW /hpf (NONE SEEN); URINE HYALINE CAST 1 /lpf; URINE MUCUS FEW
[2018-08-14] MEDS ORDERED: RANITIDINE HCL 150 MG TABLET (FP) PO ONE (00:47)
[2018-08-14 01:08] LABS: ALBUMIN 3.8 g/dl (3.4-5.0); ALK PHOS 69 U/L (45-117); ANION GAP 2 MMOL/L (8-16); BILIRUBIN,TOTAL 0.1 mg/dL (0.2-1); BLOOD UREA NITROGEN 18 mg/dL (7-18); CALCIUM 8.4 mg/dL (8.5-10.1); CHLORIDE 108 mmol/L (98-107); CO2 29 mmol/L (21-32); GLUCOSE,RANDOM 87 mg/dL (74-106); LIPASE 87 U/L (73-393); POTASSIUM 4.3 mmol/L (3.5-5.1); SGOT/AST 13 U/L (15-37); SGPT/ALT 12 U/L (13-61); SODIUM 139 mmol/L (136-145); TOT PROT 7.2 g/dl (6.4-8.2)
[2018-08-14 02:13] VITALS: BP 128/70; PULSE 66; TEMP 98.1
--- NOTE | 2018-08-14 15:37 | EKG ---
Test Reason : Blood Pressure : / mmHG Vent. Rate : 053 BPM Atrial Rate : 053 BPM P-R Int : 148 ms QRS Dur : 084 ms QT Int : 422 ms P-R-T Axes : 040 028 008 degrees QTc Int : 395 ms SINUS BRADYCARDIA OTHERWISE NORMAL ECG WHEN COMPARED WITH ECG OF 23-MAY-2018 15:04, NO SIGNIFICANT CHANGE WAS FOUND Confirmed by ZANDER MOSES MD ([id number]) on 08/14/2018 3:36:40 PM Referred By: Confirmed By:ZANDER MOSES MD
== END 2018-08-14 02:16 | disposition home or self-care (01) ==
LOC: JER 23:22
DX: R10.84 Generalized abdominal pain (principal); M54.89 Other dorsalgia; G89.29 Other chronic pain
CPT/HCPCS: 36415; 76705-TC; 80053; 81003; 81015; 83690; 85025; 87086; 93005; 93010; 99282-25

== ENCOUNTER 2018-09-08 20:59 | Emergency (ER) | payer OTHER ==
[2018-09-08 21:17] VITALS: BP 131/73; PULSE 79; TEMP 98.4; BMI 28.2
[2018-09-08] MEDS ORDERED: ONDANSETRON 4 MG/2 ML VIAL IVPUSH ONE (22:22)
[2018-09-08] MEDS ORDERED: FAMOTIDINE 20 MG/50 ML IVPB 20 MG/50 ML MG IVPB ONE ×2 (22:22→23:21)
[2018-09-08] MEDS ORDERED: SODIUM CHLORIDE 0.9% 1000 ML INFUS.BAG IV ONE (22:22)
[2018-09-08] MEDS ORDERED: MAG HYDROX/AL HYDROX/SIMETH 30 ML UNIT-DOSE CUP PO ONE (22:53)
[2018-09-08] MEDS ORDERED: ACETAMINOPHEN 1000 MG/100 ML VIAL (NON FORMULARY) IVPB ONE (22:53)
[2018-09-08] MEDS ORDERED: METOCLOPRAMIDE HCL INJECTION 10 MG/2 ML VIAL IVPB ONE (22:53)
--- NOTE | 2018-09-08 22:59 | PDOC ---
History of Present Illness - General History Source: Patient Exam Limitations: No Limitations - History of Present Illness Initial Comments: 09/08/18 22:41 The patient is a 22F with a PMH of chronic low back pain who presents to the ER with multiple complaints. The patient states that she's had 5 days of nausea, vomiting, and constipation. She denies any abdominal surgeries. She states that she came here 3 days ago and "had nothing done" and was discharged being told that "nothing was wrong". She states that she has sharp, epigastric pain, which radiates to her back, is intermittent, and without exacerbating or alleviating factors. She also admits to chills, CP, and SOB. <Lupillo Dominguez - Last Filed: 09/09/18 00:26> <Tyler Hernández - Last Filed: 09/09/18 00:40> - General Chief Complaint: Pain, Acute Stated Complaint: VOMITING/ ABD PAIN Time Seen by Provider: 09/08/18 22:03 Past History - Past Medical History Anemia: No Asthma: No Cancer: No Cardiac Disorders: No CVA: No COPD: No CHF: No Dementia: No Diabetes: No GI Disorders: No Disorders: Yes (UTIs) HTN: No Hypercholesterolemia: No Liver Disease: No Seizures: No Thyroid Disease: No - Reproductive History (#): 4 Para: 2 - Immunization History Immunization Up to Date: No - Suicide/Smoking/Psychosocial Hx Smoking History: Never smoked Have you smoked in the past 12 months: No Number of Cigarettes Smoked Daily: 20 If you are a former smoker, when did you quit?: 08/25 Information on smoking cessation initiated: No 'Breaking Loose' booklet given: 05/23/18 Hx Alcohol Use: No Drug/Substance Use Hx: No Substance Use Type: Opiates Hx Substance Use Treatment: No <Lupillo Dominguez - Last Filed: 09/09/18 00:26> <Tyler Hernández - Last Filed: 09/09/18 00:40> - Past Medical History Allergies/Adverse Reactions: Allergies Allergy/AdvReac Type Severity Reaction Status Date / Time No Known Allergies Allergy Verified 09/08/18 21:17 Home Medications: Ambulatory Orders Buspirone HCl [Buspar -] 30 mg PO BID@1000,1300 #60 tablet 05/26/18 Quetiapine Fumarate [Seroquel] 100 mg PO HS #30 tablet 05/26/18 Esomeprazole Magnesium [Nexium 24Hr] 20 mg PO DAILY #14 capsule. 09/09/18 Famotidine [Pepcid] 20 mg PO BID #20 tablet 09/09/18 [id number]/Sod Sulf,Bicarb,Cl/KCl [Golytely Solution] 2,000 ml PO ONCE #1 soln.recon 09/09/18 Review of Systems - Review of Systems Able to Perform ROS?: Yes Comments:: 09/08/18 22:59 GENERAL/CONSTITUTIONAL: + for chills. No fever. No weakness. HEAD, EYES, EARS, NOSE AND THROAT: No change in vision. No ear pain or discharge. No sore throat. CARDIOVASCULAR: + for chest pain. No palpitations or lightheadedness. RESPIRATORY: No cough, wheezing, shortness of breath, or hemoptysis. GASTROINTESTINAL: + for nausea, vomiting, constipation, and abdominal pain. GENITOURINARY: + for suprapubic pressure and dysuria. No frequency, hematuria, or change in urination. MUSCULOSKELETAL: No joint or muscle swelling or pain. No neck or back pain. SKIN: No rash or lesions. NEUROLOGIC: No headache, numbness, tingling, focal weakness, loss of consciousness, or change in strength/sensation. Is the patient limited Croatian proficient: No <Lupillo Dominguez - Last Filed: 09/09/18 00:26> *Physical Exam - Vital Signs Last Vital Signs Temp Pulse Resp BP Pulse Ox 98.4 F 79 18 131/73 100 09/08/18 21:11 09/08/18 21:11 09/08/18 21:11 09/08/18 21:11 09/08/18 21:11 - Physical Exam Comments: 09/08/18 23:03 GENERAL: Well developed, well nourished. Awake and alert. No acute distress. HEENT: Normocephalic, atraumatic. Hearing grossly normal. Moist mucous membranes. PERRLA, EOMI. No conjunctival pallor. Sclera are non-icteric. NECK: Supple. Full ROM. No JVD. CARDIOVASCULAR: Regular rate and rhythm. No murmurs, rubs, or gallops. Distal pulses are 2+ and symmetric. PULMONARY: No evidence of respiratory distress. Lungs clear to auscultation bilaterally. No wheezing, rales or rhonchi. ABDOMINAL: Soft. Tender to deep palpation in epigastrium. Non-distended. No rebound or guarding. GENITOURINARY: No CVA tenderness bilaterally. MUSCULOSKELETAL: Normal range of motion at all joints. No bony deformities or tenderness. EXTREMITIES: No cyanosis. No clubbing. No edema. No calf tenderness or swelling. SKIN: Warm and dry. Normal capillary refill. No rashes. No jaundice. NEUROLOGICAL: Alert, awake, appropriate. Cranial nerves 2-12 grossly intact. Normal speech. Gait is normal without ataxia. PSYCHIATRIC: Cooperative. Good eye contact. Appropriate mood and affect. <Lupillo Dominguez - Last Filed: 09/09/18 00:26> - Vital Signs Last Vital Signs Temp Pulse Resp BP Pulse Ox 98.4 F 79 18 131/73 100 09/08/18 21:11 09/08/18 21:11 09/08/18 21:11 09/08/18 21:11 09/08/18 21:11 <Tyler Hernández - Last Filed: 09/09/18 00:40> Moderate Sedation - Procedure Monitoring Vital Signs: Procedure Monitoring Vital Signs Temperature 98.4 F 09/08/18 21:11 Pulse Rate 79 09/08/18 21:11 Respiratory Rate 18 09/08/18 21:11 Blood Pressure 131/73 09/08/18 21:11 O2 Sat by Pulse Oximetry (%) 100 09/08/18 21:11 <Lupillo Dominguez - Last Filed: 09/09/18 00:26> - Procedure Monitoring Vital Signs: Procedure Monitoring Vital Signs Temperature 98.4 F 09/08/18 21:11 Pulse Rate 79 09/08/18 21:11 Respiratory Rate 18 09/08/18 21:11 Blood Pressure 131/73 09/08/18 21:11 O2 Sat by Pulse Oximetry (%) 100 09/08/18 21:11 <Tyler Hernández - Last Filed: 09/09/18 00:40> ED Treatment Course - LABORATORY CBC & Chemistry Diagram: 09/08/18 23:50 09/08/18 23:50 <Lupillo Dominguez - Last Filed: 09/09/18 00:26> - LABORATORY CBC & Chemistry Diagram: 09/08/18 23:50 09/08/18 23:50 - ADDITIONAL ORDERS Additional order review: Laboratory Results 09/08/18 09/08/18 23:55 23:50 Sodium 137 Potassium 4.0 Chloride 106 Carbon Dioxide 26 Anion Gap 5 L BUN 17 Creatinine 0.9 Creat Clearance w eGFR > 60 Random Glucose 83 Calcium 8.6 Total Bilirubin 0.2 AST 16 ALT 12 L Alkaline Phosphatase 83 Total Protein 7.6 Albumin 3.6 Lipase 75 Urine Color Dkyellow Urine Appearance Clear Urine pH 5.0 Ur Specific [place] 1.056 H Urine Protein 2+ H Urine Glucose (UA) Negative Urine Ketones 1+ H Urine Blood Negative Urine Nitrite Negative Urine Bilirubin 2.0 Urine Urobilinogen Negative Ur Leukocyte Esterase Negative Urine WBC (Auto) 2 Urine RBC (Auto) 1 Ur Epithelial Cells Rare Urine Bacteria Rare Urine Mucus Moderate Urine HCG, Qual Negative 09/08/18 23:50 RBC 3.98 MCV 98.1 H MCHC 34.4 RDW 14.5 MPV 9.1 Neutrophils % 63.2 Lymphocytes % 29.4 D Monocytes % 5.8 Eosinophils % 1.0 Basophils % 0.6 - Medications Given in the ED: ED Medications Discontinued Medications Generic Name Dose Route Start Last Admin Trade Name Vernq PRN Reason Stop Dose Admin Acetaminophen 1,000 mg 09/08/18 22:53 09/08/18 22:50 Ofirmev Injection - IVPB 09/08/18 22:54 1,000 mg ONCE ONE Administration Famotidine/Sodium Chloride 20 mg in 50 mls @ 100 mls/hr 09/08/18 22:22 23:50 Pepcid 20 Mg Premixed Ivpb - IVPB 09/08/18 22:51 100 mls/hr ONCE ONE Administration Metoclopramide HCl 10 mg 09/08/18 22:53 09/08/18 23:50 Reglan Injection - IVPB 09/08/18 22:54 10 mg ONCE ONE Administration Ondansetron HCl 4 mg 09/08/18 22:22 09/09/18 00:18 Zofran Injection IVPUSH 09/08/18 22:23 Not Given ONCE ONE Sodium Chloride 1,000 ml 09/08/18 22:22 09/08/18 23:50 Normal Saline - IV 09/08/18 22:23 1,000 ml ONCE ONE Administration <Tyler Hernández - Last Filed: 09/09/18 00:40> Medical Decision Making - Medical Decision Making 09/08/18 23:03 The patient is a 22F with a PMH of LBP who presents to the ER with complaints of nausea, vomiting, and constipation. Pt has had no prior abdominal surgery. Concern for gastritis, pancreatitis, peptic ulcer disease, cholecystitis. Pending labs and imaging. Treating pain symptomatically. 09/09/18 00:26 Pt signed out to Dr. Canales for further evaluation. <Lupillo Dominguez - Last Filed: 09/09/18 00:26> *DC/Admit/Observation/Transfer <Lupillo Dominguez - Last Filed: 09/09/18 00:26> <Tyler Hernández - Last Filed: 09/09/18 00:40> Diagnosis at time of Disposition: Dyspepsia - Discharge Dispostion Disposition: HOME Condition at time of disposition: Improved - Prescriptions Prescriptions: Esomeprazole Magnesium [Nexium 24Hr] 20 mg PO DAILY #14 capsule. Famotidine [Pepcid] 20 mg PO BID #20 tablet [id number]/Sod Sulf,Bicarb,Cl/KCl [Golytely Solution] 2,000 ml PO ONCE #1 soln.recon - Referrals Referrals: Deon Rose MD [Primary Care Provider] - Michael Hassan DO [Staff Physician] - - Patient Instructions Printed Discharge Instructions: DI for Gastritis, DI for Dyspepsia Additional Instructions: Activity as tolerated. Stay hydrated. Blood tests and urine test today showed no acute abnormalities. A CAT scan performed the other day also showed no acute abnormalities. As discussed, your symptoms could be due to inflammation in the stomach lining, which could explain her symptoms. Take Pepcid twice daily as prescribed, also take Nexium as prescribed. Advance diet as tolerated, avoiding dairy, spicy or fatty food, caffeine, alcohol, and anti-inflammatory medications as such as ibuprofen. Take magnesium citrate (x2) and enemas (x2) for constipation. If this doesn't work, try Golytely as prescribed - take until first bowel movement then stop. Continue your medications as previously prescribed by your physician. You should follow up with your primary doctor as soon as possible regarding today's emergency department visit. You should also see a safety deposit boxes custodian for consideration of endoscopy. Consider calling Dr. Hassan for an appointment. Return to the emergency department for any new or concerning symptoms, particularly persistent or worsening pain, persistent vomiting or dehydration, fevers or chills. - Post Discharge Activity
--- NOTE | 2018-09-08 23:19 | PDOC ---
Attending Attestation - Resident Resident Name: Gala Dominguezony - ED Attending Attestation I have performed the following: I have examined & evaluated the patient, The case was reviewed & discussed with the resident, I agree w/resident's findings & plan - HPI HPI: 09/08/18 23:14 22-year-old female with history of chronic back pain, intermittent OxyContin use , recent ED visit for upper abdominal pain with nausea/vomiting/constipation discharged after workup including labs/CT abdomen and pelvis was unremarkable presents now for evaluation with persistent epigastric pain with nausea/ nonbloody vomiting. Patient reports constant epigastric burning radiating to her back, associated with nonbloody nonbilious nausea/vomiting, still feels constipated despite attempts to use [id number] medications, presents now for evaluation. No fevers or chills, no surgical history. Admits to using OxyContin in the last few days, denies any excessive alcohol/NSAID use Never had endoscopy or colonoscopy but states she has been told in the past should have it. - Physicial Exam PE: 09/08/18 23:17 Vitals are within normal limits Well-appearing, ambulating comfortably No jaundice or pallor, moist mucosa Heart is regular, lungs are clear Abdomen is soft/nondistended. Epigastric and left upper quadrant tenderness without guarding, no other quadrant tenderness, no rebound. Bowel sounds are within normal limits. No CVA tenderness. No rash, neurological exam is normal - Medical Decision Making 09/08/18 23:18 22-year-old female with history of substance use on opiates, complicated by constipation presents now with epigastric pain/nausea/vomiting for a few days, recent negative workup. Presentation seems most consistent with constipation versus gastritis, rule out biliary or pancreatic etiology. Labs, urinalysis IV fluids, antiemetics, antacids Reassess. If above is within normal limits, should have prompt GI referral, will start on antacids 09/09/18 00:34 Feels markedly improved after medications and IV fluids, labs are within normal limits including urinalysis. Abdominal exam is benign, she is tolerating by mouth, she wants to go home. Understands return criteria, will follow up with GI. Heart Score/ECG Review #1 ECG reviewed & interpreted by me at: 00:28 General ECG Interpretation: Sinus Rhythm, Normal Rate (60), Normal Intervals ( qtc 442), No acute ischemic changes
[2018-09-08] MEDS ORDERED: ACETAMINOPHEN INJECTION 100 ML IVPB ONE (23:20)
[2018-09-08] MEDS ORDERED: METOCLOPRAMIDE HCL INJECTION 10 MG/2 ML VIAL ONE (23:20)
[2018-09-08] MEDS ORDERED: ONDANSETRON 4 MG/2 ML VIAL ONE (23:21)
[2018-09-08] MEDS ORDERED: MAG HYDROX/AL HYDROX/SIMETH 30 ML UNIT-DOSE CUP ONE (23:21)
[2018-09-08 23:58] LABS: BASO % 0.6 % (0-2.0); HEMOGLOBIN 13.4 GM/dL (10.7-15.3); LYMPH % 29.4 % (8-40); MCH 33.8 pg (25.7-33.7); MCHC 34.4 g/dl (32.0-36.0); MEAN CELL VOLUME 98.1 fl (80-96); MEAN PLT VOLUME 9.1 fl (7.5-11.1); MONO % 5.8 % (3.8-10.2); NEUT % 63.2 % (42.8-82.8); PLATELET COUNT 291 K/MM3 (134-434); RBC 3.98 M/mm3 (3.60-5.2); RDW 14.5 % (11.6-15.6); WHITE BLOOD COUNT 8.1 K/mm3 (4.0-10.0)
[2018-09-09 00:02] LABS: URINE APPEARANCE CLEAR; URINE COLOR DKYELLOW; URINE GLUCOSE (UA) NEGATIVE (NEGATIVE); URINE KETONE 1+ (NEGATIVE); URINE LEUK ESTERASE NEGATIVE (NEGATIVE); URINE NITRITE NEGATIVE (NEGATIVE); URINE PROTEIN 2+ (NEGATIVE); URINE UROBILINOGEN NEGATIVE mg/dL (0.2-1.0)
[2018-09-09 00:04] LABS: HCG,QUALITATIVE URINE Negative
[2018-09-09 00:17] LABS: EPI CELLS RARE /HPF (FEW); URINE BACTERIA RARE /hpf (NONE SEEN); URINE MUCUS MODERATE
[2018-09-09 00:29] LABS: ALBUMIN 3.6 g/dl (3.4-5.0); ALK PHOS 83 U/L (45-117); ANION GAP 5 MMOL/L (8-16); BILIRUBIN,TOTAL 0.2 mg/dL (0.2-1); BLOOD UREA NITROGEN 17 mg/dL (7-18); CALCIUM 8.6 mg/dL (8.5-10.1); CHLORIDE 106 mmol/L (98-107); CO2 26 mmol/L (21-32); CREATININE 0.9 mg/dL (0.55-1.3); GLUCOSE,RANDOM 83 mg/dL (74-106); LIPASE 75 U/L (73-393); SGOT/AST 16 U/L (15-37); SGPT/ALT 12 U/L (13-61); SODIUM 137 mmol/L (136-145); TOT PROT 7.6 g/dl (6.4-8.2)
--- NOTE | 2018-09-09 10:24 | EKG ---
Test Reason : Blood Pressure : / mmHG Vent. Rate : 060 BPM Atrial Rate : 060 BPM P-R Int : 162 ms QRS Dur : 074 ms QT Int : 442 ms P-R-T Axes : 025 026 016 degrees QTc Int : 442 ms POOR DATA QUALITY, INTERPRETATION MAY BE ADVERSELY AFFECTED NORMAL SINUS RHYTHM NONSPECIFIC T WAVE ABNORMALITY ABNORMAL ECG Confirmed by RAE ROMERO MD ([id number]) on 09/09/2018 10:24:12 AM Referred By: Confirmed By:RAE ROMERO MD
== END 2018-09-09 00:58 | disposition home or self-care (01) ==
LOC: JER 20:59
PROC: 3E033GC Introduction of Other Therapeutic Substance into Peripheral Vein, Percutaneous Approach (ICD-10-PCS; principal; 2018-09-08)
PROC: 3E033GC Introduction of Other Therapeutic Substance into Peripheral Vein, Percutaneous Approach (ICD-10-PCS; 2018-09-08)
PROC: 3E033NZ Introduction of Analgesics, Hypnotics, Sedatives into Peripheral Vein, Percutaneous Approach (ICD-10-PCS; 2018-09-08)
DX: K29.70 Gastritis, unspecified, without bleeding (principal); K29.00 Acute gastritis without bleeding
CPT/HCPCS: 36415; 80053; 81003; 81015; 83690; 84703; 85025; 93005; 93010; 99282-25; J0131; J7030

== ENCOUNTER 2018-10-05 11:19 | Day surgery (SDC) | payer OTHER ==
[2018-09-29 18:09] VITALS: BMI 31.7
[2018-10-05] MEDS ORDERED: LIDOCAINE HCL/PF 2% SDV 5ML VIAL ONE (12:39)
[2018-10-05] MEDS ORDERED: PROPOFOL 20 ML ONE (12:39)
[2018-10-05] MEDS ORDERED: ONDANSETRON 4 MG/2 ML VIAL IVPUSH PRN (13:56)
[2018-10-05] MEDS ORDERED: ACETAMINOPHEN 325 MG TABLET (FP) PO PRN (13:56)
[2018-10-05] MEDS ORDERED: ACETAMINOPHEN 325 MG TABLET (FP) ONE (13:59)
[2018-10-05] MEDS ORDERED: LACTATED RINGERS SOLUTION 1,000 ML IV SCH (14:00)
[2018-10-05 16:08] VITALS: TEMP 97.8
[2018-10-05 16:24] VITALS: BP 118/54; PULSE 55
--- NOTE | 2018-10-07 13:32 | PATH ---
Surgical Pathology Report Patient Name: RIO BARRETO [facility]. Rec. #: [id number] /Age/Gender: 1995 (Age: 22) / F Account: [id number] Location: [facility] Taken: 10/05/2018 Received: 10/05/2018 Reported: 10/07/2018 Physicians: Candace Mcmanus M.D. Specimen(s) Received A: SECOND PORTION DUODENUM B: GASTRIC ANTRUM C: ULCER MARGIN D: GE JUNCTION Clinical History Abdominal pain Postoperative diagnosis: Gastric ulcer Final Diagnosis A. DUODENUM, SECOND PORTION, BIOPSY: DUODENAL MUCOSA WITHOUT SIGNIFICANT PATHOLOGIC FINDINGS. B. GASTRIC ANTRUM, BIOPSY: GASTRIC ANTRAL MUCOSA WITH MILD CHRONIC GASTRITIS. IMMUNOHISTOCHEMICAL STAIN FOR H. PYLORI IS NEGATIVE. C. ULCER MARGIN, BIOPSY: GASTRIC MUCOSA WITH MILD CHRONIC GASTRITIS, FOCAL VASCULAR CONGESTION, AND FOCAL ULCERATION. IMMUNOHISTOCHEMICAL STAIN FOR H. PYLORI IS NEGATIVE. D. GE JUNCTION, BIOPSY: SQUAMOCOLUMNAR MUCOSA WITH MILD ACUTE AND CHRONIC INFLAMMATION AND CHANGES OF [MILD] REFLUX ESOPHAGITIS. NO INTESTINAL METAPLASIA OR DYSPLASIA IDENTIFIED. Electronically Signed Candace Moran M.D. Gross Description A. Received in formalin, labeled "biopsy second portion of duodenum" is a sánchez, irregular portion of soft tissue measuring 0.4 cm. in greatest dimension. The specimen is submitted in toto in one cassette. B. Received in formalin, labeled "biopsy gastric antrum" is a sánchez, irregular portion of soft tissue measuring 0.4 cm. in greatest dimension. The specimen is submitted in toto in one cassette. C. Received in formalin, labeled "biopsy ulcer margin" is a sánchez, irregular portion of soft tissue measuring 0.4 cm. in greatest dimension. The specimen is submitted in toto in one cassette. D. Received in formalin, labeled "biopsy GE junction" is a sánchez, irregular portion of soft tissue measuring 0.4 cm. in greatest dimension. The specimen is submitted in toto in one cassette. 10/06/2018 [facility]10/06/2018
== END 2018-10-05 14:00 | disposition home or self-care (01) ==
LOC: FASU-ENDO 11:19 → MERGE 11:19 → FASU-ENDO 14:00
PROVIDERS: ATTEND Internal Medicine Gastroenterology
PROC: 0DB68ZX Excision of Stomach, Via Natural or Artificial Opening Endoscopic, Diagnostic (ICD-10-PCS; 2018-10-05)
PROC: 0DB38ZX Excision of Lower Esophagus, Via Natural or Artificial Opening Endoscopic, Diagnostic (ICD-10-PCS; 2018-10-05)
PROC: 0DB98ZX Excision of Duodenum, Via Natural or Artificial Opening Endoscopic, Diagnostic (ICD-10-PCS; principal; 2018-10-05 12:53)
DX: K25.9 Gastric ulcer, unspecified as acute or chronic, without hemorrhage or perforation (principal); K26.9 Duodenal ulcer, unspecified as acute or chronic, without hemorrhage or perforation; K29.50 Unspecified chronic gastritis without bleeding; K21.0 Gastro-esophageal reflux disease with esophagitis; R10.9 Unspecified abdominal pain
CPT/HCPCS: 84703; 88305-TC; 88342-TC

== ENCOUNTER 2019-07-10 06:47 | Emergency (ER) | payer OTHER ==
[2019-07-10 07:20] VITALS: TEMP 99; BMI 29.7
[2019-07-10] MEDS ORDERED: KETOROLAC TROMETHAMINE 30 MG/1 ML VIAL IVPUSH ONE (07:56)
[2019-07-10] MEDS ORDERED: SODIUM CHLORIDE 1,000 ML IV STA (07:56)
[2019-07-10] MEDS ORDERED: PANTOPRAZOLE SODIUM 40 MG VIAL IVPUSH ONE (07:56)
[2019-07-10] MEDS ORDERED: PANTOPRAZOLE SODIUM 40 MG/100 ML BAG IVPB ONE (08:07)
[2019-07-10] MEDS ORDERED: KETOROLAC TROMETHAMINE 30 MG/1 ML VIAL ONE (08:07)
[2019-07-10] MEDS ORDERED: QUEtiapine FUMARATE 100 MG TABLET (FP) PO ONE (08:20)
[2019-07-10 09:00] LABS: BASO % 0.7 % (0-2.0); EOS % 2.1 % (0-4.5); HEMATOCRIT 35.9 % (32.4-45.2); MCH 31.7 pg (25.7-33.7); MCHC 33.5 g/dl (32.0-36.0); MEAN CELL VOLUME 94.6 fl (80-96); MEAN PLT VOLUME 11.2 fl (7.5-11.1); MONO % 5.6 % (3.8-10.2); NEUT % 68.6 % (42.8-82.8); PLATELET COUNT 283 K/MM3 (134-434); RBC 3.79 M/mm3 (3.60-5.2); RDW 15.4 % (11.6-15.6); WHITE BLOOD COUNT 10.6 K/mm3 (4.0-10.0)
[2019-07-10 09:07] LABS: URINE APPEARANCE CLOUDY; URINE BILIRUBIN NEGATIVE (NEGATIVE); URINE COLOR DK YELLOW; URINE GLUCOSE (UA) NEGATIVE (NEGATIVE); URINE KETONE NEGATIVE (NEGATIVE); URINE LEUK ESTERASE NEGATIVE (NEGATIVE); URINE NITRITE NEGATIVE (NEGATIVE); URINE PROTEIN NEGATIVE (NEGATIVE)
[2019-07-10] MEDS ORDERED: QUEtiapine FUMARATE 100 MG TABLET (FP) ONE (09:08)
[2019-07-10] MEDS ORDERED: morphine CARPU-JECT 2 MG/1 ML DISP.SYRIN IVPUSH ONE (09:12)
--- NOTE | 2019-07-10 09:19 | PDOC ---
History of Present Illness - General Chief Complaint: Pain, Acute Stated Complaint: FLU LIKE SYMPTOMS Time Seen by Provider: 07/10/19 08:15 History Source: Patient Exam Limitations: No Limitations - History of Present Illness Travel History: No Initial Comments: 07/10/19 08:14 23-year-old female presents to the ED with complaints of epigastric stabbing pain for the past 2 days worsened at night along with left lower suprapubic pain worse at night and with movement. Patient states was told earlier this year that she had an ulcer but was not prescribed medication. Patient has no urinary complaints, fever, chills but states mild nausea after meals. Patient states was 6 weeks 2 weeks ago and so was given the pill which she took 2 weeks ago followed by vaginal bleeding and cramping. Patient has no [employer] complaints except for left suprapubic discomfort. LMP June 02, 2019 Timing/Duration: reports: getting worse Quality: reports: moderate, sharpness, stabbing Abdominal Pain Onset Location: reports: epigastric Pain Radiation: reports: chest (suprapubic) Activities at Onset: reports: none Aggravating Factors: improves with: Eating Alleviating Factors: improves with: None Past History - Travel Traveled outside of the country in the last 30 days: No Close contact w/someone who was outside of country & ill: No - Past Medical History Allergies/Adverse Reactions: Allergies Allergy/AdvReac Type Severity Reaction Status Date / Time No Known Allergies Allergy Verified 07/10/19 07:21 Home Medications: Ambulatory Orders Naproxen [Naprosyn] 500 mg PO BID PRN #20 tablet 01/12/15 Buspirone HCl [Buspar -] 30 mg PO BID@1000,1300 #60 tablet 05/26/18 Mag Hydrox/Al Hydrox/Simeth [Mylanta Suspension -] 30 ml PO Q6H #1 bottle Esomeprazole Magnesium [Nexium 24Hr] 20 mg PO DAILY #14 capsule. 09/09/18 Oxycodone HCl/Acetaminophen [Percocet 10-325 mg Tablet] 1 each PO Q4H PRN Quetiapine Fumarate [Seroquel -] 100 mg PO DAILY 07/10/19 Quetiapine Fumarate [Seroquel -] 200 mg PO HS 07/10/19 Anemia: No Asthma: No Cancer: No Cardiac Disorders: No CVA: No COPD: No CHF: No Dementia: No Diabetes: No Dialysis: No GI Disorders: No Disorders: No HTN: No Hypercholesterolemia: No Liver Disease: No Seizures: No Thyroid Disease: No Other medical history: chronic back pain - Surgical History Cholecystectomy: No Lung Surgery: No - Reproductive History (#): 4 Para: 2 Cervical CA: No Dysfunctional Uterine Bleeding: No Ectopic : No Endometrial CA: No Polycystic Ovaries: No Tubal Ligation: No - Immunization History Immunization Up to Date: Yes - Psycho Social/Smoking Cessation Hx Smoking History: Current every day smoker Have you smoked in the past 12 months: Yes Number of Cigarettes Smoked Daily: 10 If you are a former smoker, when did you quit?: 08/25 Information on smoking cessation initiated: No 'Breaking Loose' booklet given: 05/23/18 Hx Alcohol Use: No Drug/Substance Use Hx: No Substance Use Type: None, Opiates Hx Substance Use Treatment: No Patient Lives Alone: No Lives with/in: parents Abd/GI Specific PMHX - Complaint Specific PMHX GI Ulcer Disease: Yes Review of Systems - Review of Systems Able to Perform ROS?: Yes Constitutional: No: Symptoms Reported HEENTM: No: Symptoms Reported Respiratory: No: Symptoms reported Cardiac (ROS): No: Symptoms Reported ABD/GI: Yes: Nausea, Indigestion, Abdominal cramping : No: Symptoms Reported Musculoskeletal: No: Symptoms Reported Integumentary: No: Symptoms Reported Neurological: No: Symptoms reported Endocrine: No: Symptoms Reported Hematologic/Lymphatic: No: Symptoms Reported *Physical Exam - Vital Signs Last Vital Signs Temp Pulse Resp BP Pulse Ox 99 F 61 18 131/46 L 100 07/10/19 07:17 07/10/19 07:17 07/10/19 07:17 07/10/19 07:17 07/10/19 07:17 - Physical Exam General Appearance: Yes: Nourished, Appropriately Dressed. No: Apparent Distress HEENT: negative: Pale Conjunctivae Neck: positive: Normal Thyroid Respiratory/Chest: positive: Lungs Clear, Normal Breath Sounds. negative: Respiratory Distress, Accessory Muscle Use Cardiovascular: positive: Regular Rhythm, Regular Rate. negative: Murmur Female Pelvic Exam: positive: normal external exam. negative: discharge Gastrointestinal/Abdominal: positive: Soft, Tenderness (Left suprapubic and epigastric region) Integumentary: positive: Normal Color, Warm, Moist Neurologic: positive: Motor Strength 5/5 (Ambulatory) ED Treatment Course - LABORATORY CBC & Chemistry Diagram: 07/10/19 08:20 07/10/19 08:20 - ADDITIONAL ORDERS Additional order review: Laboratory Results 07/10/19 08:20 Urine Color Dk yellow Urine Appearance Cloudy Urine pH 6.0 Ur Specific [place] 1.032 Urine Protein Negative Urine Glucose (UA) Negative Urine Ketones Negative Urine Blood Negative Urine Nitrite Negative Urine Bilirubin Negative Urine Urobilinogen 1.0 Ur Leukocyte Esterase Negative - RADIOLOGY Radiology Studies Ordered: Category Date Time Status TRANSVAGINAL ULTRASOUND US [US] Stat Ultrasound 07/10/19 07:56 Ordered - Medications Given in the ED: ED Medications Discontinued Medications Generic Name Dose Route Start Last Admin Trade Name Freq PRN Reason Stop Dose Admin Sodium Chloride 1,000 mls @ 1,000 mls/hr 07/10/19 07:56 07/10/19 08:30 Normal Saline - IV 07/10/19 08:55 1,000 mls/hr ASDIR STA Administration Ketorolac Tromethamine 30 mg 07/10/19 07:56 07/10/19 08:30 Toradol Injection - IVPUSH 07/10/19 07:57 30 mg ONCE ONE Administration Pantoprazole Sodium 40 mg 07/10/19 07:56 07/10/19 08:30 Protonix Iv IVPUSH 07/10/19 07:57 40 mg ONCE ONE Administration Medical Decision Making - Medical Decision Making 07/10/19 08:22 Chief complaint: Patient with epigastric sharp pain the past few days worsened at night associated mild nausea. Patient also states pain to her left lower abdomen. Patient states 2 weeks ago found that she was 6 weeks so went to a clinic and was given the pill. Patient states she took it had abdominal cramping with vaginal bleeding. No other complaints Exam: Patient with epigastric and left suprapubic pain on exam. deferred pelvic secondary to refusal Plan: Urine urine culture urine labs, Toradol, Protonix and ultrasound ordered 07/10/19 09:23 Laboratory Tests 07/10/19 07/10/19 07/10/19 08:20 08:20 08:20 WBC 10.6 H Hgb 12.0 Hct 35.9 MPV 11.2 H D Absolute Neuts (auto) 7.2 Urine Color Dk yellow Urine Appearance Cloudy Urine pH 6.0 Ur Specific [place] 1.032 Urine Protein Negative Urine Ketones Negative Urine Blood Negative Urine Nitrite Negative Urine Bilirubin Negative Urine Urobilinogen 1.0 Ur Leukocyte Esterase Negative Urine HCG, Qual Positive Beta-hCG added. Ultrasound changed to transvaginal . Pt states feeling better. 07/10/19 11:20 Ultrasound shows a single live intrauterine at 8 weeks 2 days with a heart rate of 156 bpm. No other etiology noted on ultrasound. Patient states did have a follow-up appointment at [facility] on the but missed appointment. Patient is encouraged to follow-up with [facility] in regards to this since she does not want to keep this child. Otherwise patient will be prescribed Protonix p.o. for PUD recommend to avoid spicy greasy and fatty foods as this increases her symptoms. Discharge - Discharge Information Problems reviewed: Yes Clinical Impression/Diagnosis: Dyspepsia, IUP (intrauterine ), incidental Condition: Improved Disposition: HOME - Follow up/Referral - Patient Discharge Instructions Patient Printed Discharge Instructions: DI for Peptic Ulcer Additional Instructions: Please avoid spicy greasy fatty foods and take Protonix as prescribed. Please also follow-up with [facility] to plan for this - Post Discharge Activity
[2019-07-10 09:30] LABS: ALBUMIN 3.5 g/dl (3.4-5.0); BILIRUBIN,TOTAL 0.2 mg/dL (0.2-1); BLOOD UREA NITROGEN 8.9 mg/dL (7-18); CALCIUM 8.6 mg/dL (8.5-10.1); CREATININE 0.6 mg/dL (0.55-1.3); POTASSIUM 4.2 mmol/L (3.5-5.1); TOT PROT 6.9 g/dl (6.4-8.2)
--- NOTE | 2019-07-10 11:55 | PDOC ---
*Physical Exam - Vital Signs Last Vital Signs Temp Pulse Resp BP Pulse Ox 99 F 61 18 131/46 L 100 07/10/19 07:17 07/10/19 07:17 07/10/19 07:17 07/10/19 07:17 07/10/19 07:17 - Physical Exam 07/10/19 11:53 O2 sat within normal limits, blood pressure within normal limits Abdominal exam as noted, refused pelvic ED Treatment Course - LABORATORY CBC & Chemistry Diagram: 07/10/19 08:20 07/10/19 08:20 - ADDITIONAL ORDERS Additional order review: Laboratory Results 07/10/19 07/10/19 07/10/19 08:20 08:20 08:20 Sodium 137 Potassium 4.2 Chloride 107 Carbon Dioxide 25 Anion Gap 4 L BUN 8.9 Creatinine 0.6 Est GFR (CKD-EPI)AfAm 146.83 Est GFR (CKD-EPI)NonAf 126.68 Random Glucose 84 Calcium 8.6 Total Bilirubin 0.2 AST 21 ALT 15 Alkaline Phosphatase 44 L Total Protein 6.9 Albumin 3.5 Urine Color Dk yellow Urine Appearance Cloudy Urine pH 6.0 Ur Specific [place] 1.032 Urine Protein Negative Urine Glucose (UA) Negative Urine Ketones Negative Urine Blood Negative Urine Nitrite Negative Urine Bilirubin Negative Urine Urobilinogen 1.0 Ur Leukocyte Esterase Negative Urine HCG, Qual Positive 07/10/19 08:20 RBC 3.79 MCV 94.6 MCHC 33.5 RDW 15.4 MPV 11.2 H D Neutrophils % 68.6 Lymphocytes % 23.0 D Monocytes % 5.6 Eosinophils % 2.1 D Basophils % 0.7 - Medications Given in the ED: ED Medications Discontinued Medications Generic Name Dose Route Start Last Admin Trade Name Freq PRN Reason Stop Dose Admin Sodium Chloride 1,000 mls @ 1,000 mls/hr 07/10/19 07:56 07/10/19 08:30 Normal Saline - IV 07/10/19 08:55 1,000 mls/hr ASDIR STA Administration Ketorolac Tromethamine 30 mg 07/10/19 07:56 07/10/19 08:30 Toradol Injection - IVPUSH 07/10/19 07:57 30 mg ONCE ONE Administration Pantoprazole Sodium 40 mg 07/10/19 07:56 07/10/19 08:30 Protonix Iv IVPUSH 07/10/19 07:57 40 mg ONCE ONE Administration Quetiapine Fumarate 100 mg 07/10/19 08:20 07/10/19 09:16 Seroquel - PO 07/10/19 08:21 100 mg ONCE ONE Administration Medical Decision Making - Medical Decision Making 07/10/19 11:53 Patient seen and evaluated with the nurse practitioner. I agree with the overall evaluation, assessment, and management with the following summary of visit: 23-year-old female first semester , history of dyspepsia presents with exacerbation of her abdominal pain. Labs within normal limits, no leukocytosis and normal LFTs Transvaginal ultrasound confirms IUP Urinalysis clear DC with antacids and GI follow-up Discharge - Discharge Information Problems reviewed: Yes Clinical Impression/Diagnosis: Dyspepsia, IUP (intrauterine ), incidental Condition: Improved Disposition: HOME - Additional Discharge Information Prescriptions: Pantoprazole Sodium [Protonix] 40 mg PO DAILY #30 tablet.dr - Follow up/Referral - Patient Discharge Instructions Patient Printed Discharge Instructions: DI for Peptic Ulcer Additional Instructions: Please avoid spicy greasy fatty foods and take Protonix as prescribed. Please also follow[facility] with [facility] to [facility] - Post Discharge Activity
[2019-07-10 12:59] VITALS: BP 129/50; PULSE 77
== END 2019-07-10 13:15 | disposition home or self-care (01) ==
LOC: JER 06:47
PROC: 3E0333Z Introduction of Anti-inflammatory into Peripheral Vein, Percutaneous Approach (ICD-10-PCS; principal; 2019-07-10)
PROC: 3E033GC Introduction of Other Therapeutic Substance into Peripheral Vein, Percutaneous Approach (ICD-10-PCS; 2019-07-10)
DX: O26.891 Other specified pregnancy related conditions, first trimester (principal); O99.611 Diseases of the digestive system complicating pregnancy, first trimester; R10.13 Epigastric pain; K92.89 Other specified diseases of the digestive system; Z3A.08 8 weeks gestation of pregnancy
CPT/HCPCS: 36415; 76817-TC; 80053; 81003; 84702; 84703; 85025; 87086; 96374; 96375; 99283-25; J7030

== ENCOUNTER 2021-05-27 16:09 | Emergency (ER) | payer OTHER ==
[2021-05-27 16:56] VITALS: BP 110/70; PULSE 80; TEMP 98.2; BMI 32.8
[2021-05-27] MEDS ORDERED: SODIUM CHLORIDE 1,000 ML IV STA (17:46)
[2021-05-27] MEDS ORDERED: ONDANSETRON 4 MG TABLET PO ONE (17:46)
[2021-05-27] MEDS ORDERED: IBUPROFEN 600 MG TABLET (FP) PO ONE (17:46)
[2021-05-27] MEDS ORDERED: ACETAMINOPHEN 325 MG TABLET (FP) PO PRN (17:55)
[2021-05-27] MEDS ORDERED: methylPREDNISolone NA SUCC 125 MG/2 ML VIAL IVPB ONE (18:12)
[2021-05-27] MEDS ORDERED: methylPREDNISolone NA SUCC 125 MG/2 ML VIAL ONE (18:25)
[2021-05-27] MEDS ORDERED: ONDANSETRON *ODT* 4 MG TABLET ONE (18:25)
[2021-05-27 19:15] LABS: HEMATOCRIT 37.2 % (32.4-45.2); HEMOGLOBIN 12.9 GM/dL (10.7-15.3); MCH 33.1 pg (25.7-33.7); MCHC 34.6 g/dl (32.0-36.0); MEAN CELL VOLUME 95.6 fl (80-96); MEAN PLT VOLUME 9.4 fl (7.5-11.1); PLATELET COUNT 217 10^3/uL (134-434); RDW 14.4 % (11.6-15.6); WHITE BLOOD COUNT 10.2 K/mm3 (4.0-10.0)
[2021-05-27 19:42] LABS: BLOOD UREA NITROGEN 7.6 mg/dL (7-18); CALCIUM 9.2 mg/dL (8.5-10.1)
[2021-05-27 19:43] LABS: ALBUMIN 3.7 g/dl (3.4-5.0)
[2021-05-27 19:46] LABS: CREATININE 0.8 mg/dL (0.55-1.3)
[2021-05-27 19:47] LABS: BILIRUBIN,TOTAL 0.2 mg/dL (0.2-1)
[2021-05-27 19:48] LABS: TOT PROT 7.7 g/dl (6.4-8.2)
== END 2021-05-27 20:44 | disposition home or self-care (01) ==
LOC: JER 16:09
PROC: 3E033NZ Introduction of Analgesics, Hypnotics, Sedatives into Peripheral Vein, Percutaneous Approach (ICD-10-PCS; principal; 2021-05-27)
PROC: 3E033GC Introduction of Other Therapeutic Substance into Peripheral Vein, Percutaneous Approach (ICD-10-PCS; 2021-05-27)
PROC: 3E0337Z Introduction of Electrolytic and Water Balance Substance into Peripheral Vein, Percutaneous Approach (ICD-10-PCS; 2021-05-27)
DX: T78.40XA Allergy, unspecified, initial encounter (principal); R10.9 Unspecified abdominal pain; K30 Functional dyspepsia; O00.01 Abdominal pregnancy with intrauterine pregnancy; F17.200 Nicotine dependence, unspecified, uncomplicated
CPT/HCPCS: 36415; 76815; 80053; 84702; 85027; 86850; 86900; 86901; 93971-RT; 96361; 96374; 96375; 99284-25

== ENCOUNTER 2023-07-12 17:39 | Emergency (ER) | payer OTHER ==
[2023-07-12 18:03] VITALS: BP 124/80; PULSE 73; RESP 16; TEMP 102.5; BMI 28.2
[2023-07-12] MEDS ORDERED: SODIUM CHLORIDE 0.9% 500 ML INFUS.BAG IV ONE (18:33)
[2023-07-12] MEDS ORDERED: ACETAMINOPHEN 1000 MG/100 ML BAG IVPB ONE (18:33)
[2023-07-12] MEDS ORDERED: morphine CARPU-JECT 2 MG/1 ML DISP.SYRIN IVPUSH ONE (19:28)
[2023-07-12] MEDS ORDERED: ACETAMINOPHEN INJECTION 100 ML IVPB ONE (19:32)
[2023-07-12 19:42] LABS: BASO % 0.3 % (0-2.0); EOS % 1.2 % (0-4.5); HEMATOCRIT 39.1 % (32.4-45.2); HEMOGLOBIN 12.9 GM/dL (10.7-15.3); LYMPH % 3.6 % (8-40); MCH 32.6 pg (25.7-33.7); MCHC 33.1 g/dl (32.0-36.0); MEAN CELL VOLUME 98.7 fl (80-96); MEAN PLT VOLUME 9.4 fl (7.5-11.1); MONO % 7.3 % (3.8-10.2); NEUT % 87.6 % (42.8-82.8); PLATELET COUNT 226 10^3/uL (134-434); RBC 3.96 M/mm3 (3.60-5.2); RDW 14.2 % (11.6-15.6); WHITE BLOOD COUNT 8.8 K/mm3 (4.0-10.0)
[2023-07-12 19:48] LABS: INR 1.18 (0.83-1.09); PROTHROMBIN TIME (PATIENT) 13.7 SEC (9.7-13.0)
[2023-07-12 19:51] LABS: ACTIVATED PTT 34.9 SECONDS (25.2-36.5)
[2023-07-12 19:59] LABS: POTASSIUM 3.9 mmol/L (3.5-5.1)
[2023-07-12 20:01] LABS: CALCIUM 9.9 mg/dL (8.5-10.1)
[2023-07-12 20:02] LABS: BLOOD UREA NITROGEN 7.8 mg/dL (7-18)
[2023-07-12 20:04] LABS: CREATININE 1.1 mg/dL (0.55-1.3)
[2023-07-12 20:06] LABS: BILIRUBIN,TOTAL 0.2 mg/dL (0.2-1); TOT PROT 8.1 g/dl (6.4-8.2)
[2023-07-12 20:32] LABS: EPI CELLS >36 /uL (0-25.1); HYALINE CASTS 1 /uL (0-3.1); PH,URINE 7.5 (5.0-8.0); URINE APPEARANCE CLOUDY; URINE BACTERIA 589 /uL (0-1359); URINE BILIRUBIN NEGATIVE (NEGATIVE); URINE COLOR YELLOW; URINE GLUCOSE (UA) NEGATIVE (NEGATIVE); URINE KETONE NEGATIVE (NEGATIVE); URINE LEUK ESTERASE TRACE (NEGATIVE); URINE NITRITE NEGATIVE (NEGATIVE); URINE PROTEIN NEGATIVE (NEGATIVE); URINE RBC 5 /uL (0-23.9); URINE WBC 22 /uL (0-25.8)
== END 2023-07-12 22:51 | disposition home or self-care (01) ==
LOC: JER 17:39
PROC: 3E033NZ Introduction of Analgesics, Hypnotics, Sedatives into Peripheral Vein, Percutaneous Approach (ICD-10-PCS; principal; 2023-07-12)
PROC: 3E033GC Introduction of Other Therapeutic Substance into Peripheral Vein, Percutaneous Approach (ICD-10-PCS; 2023-07-12)
DX: R10.30 Lower abdominal pain, unspecified (principal); U07.1 COVID-19; N93.9 Abnormal uterine and vaginal bleeding, unspecified; R50.9 Fever, unspecified
CPT/HCPCS: 0241U-QW; 36415; 76830-TC; 80053; 81003; 84702; 84703; 85025; 85610; 85730; 86850; 86900; 86901; 87040; 87077; 87086; 93005; 93010; 99285-25